=== PATIENT | male | born 1960 | race Caucasian/White ===

== ENCOUNTER 2017-01-20 05:39 | Outpatient (CLI) | payer BC, OTHER ==
[~2017-01-20] VITALS: Ht 175.3 cm; Wt 85.3 kg
[2017-01-20] MEDS ORDERED: LISI10TA2 PO (10:32)
[2017-01-20] MEDS ORDERED: ATOR10TA66 PO (10:32)
== END 2017-01-20 10:37 ==
LOC: PREOP 05:39
PROVIDERS: ATTEND Surgery
DX: Z01.818 Encounter for other preprocedural examination (principal); Z12.11 Encounter for screening for malignant neoplasm of colon

== ENCOUNTER 2017-01-27 07:43 | Day surgery (SDC) | payer BC, OTHER ==
[~2017-01-27] VITALS: Ht 175.3 cm; Wt 85.3 kg
[~2017-01-27 07:43] MED LIST: ATOR10TA66 PO; LISI10TA2 PO
[2017-01-27] MEDS ORDERED: LACTATED RINGERS 1,000 ML IV STA (07:51)
[2017-01-27 08:01] VITALS: BP 126/87
--- NOTE | 2017-01-27 08:16 | Progress Note-Pre Operative ---
Pre-Operative Progress Note H&P Reviewed The H&P was reviewed, patient examined and no changes noted. Date Seen by Provider: Jan 27, 2017 Time Seen by Provider: 08:16 Date H&P Reviewed: Jan 27, 2017 Time H&P Reviewed: 08:16 Pre-Operative Diagnosis: screening colonoscopy SUJIT ESQUIVEL DO Jan 27, 2017 08:16
[2017-01-27] MEDS ORDERED: MIDAZOLAM 2 MG/2 ML (VERSED) VIAL ONE (08:45)
[2017-01-27] MEDS ORDERED: proPOfol 200 MG/20 ML (DIPRIVAN) VIAL IV ONE ×2 (08:45→09:14)
--- NOTE | 2017-01-27 09:34 | Progress Note-Post Operative ---
Post-Operative Progess Note Surgeon (s)/Unloader (s) Surgeon SUJIT ESQUIVEL DO Unloader: na Pre-Operative Diagnosis screening colonoscopy Post-Operative Diagnosis diverticulosis, colon polyp x 2 descending colon Procedure & Operative Findings Date of Procedure 01/27/17 Procedure Performed/Findings colonoscopy with hot bx polypectomy x 2 Anesthesia Type per gas plumbing inspector Estimated Blood Loss Estimated blood loss (mL): none Specimens/Packing Specimens Removed colon polyp x 2 descending colon SUJIT ESQUIVEL DO Jan 27, 2017 09:34
--- NOTE | 2017-01-27 09:35 | Discharge Inst-Simple/Standard ---
Discharge Inst-Standard Patient Instructions/Follow Up Plan of Care/Instructions/FU: 2 weeks lucretia Activity as Tolerated: Yes Discharge Diet: Regular Diet (high fiber diet) SUJIT ESQUIVEL DO Jan 27, 2017 09:35
[2017-01-27 09:40] VITALS: BP 114/78
[2017-01-27 10:10] VITALS: BP 128/81
[2017-01-27 10:25] VITALS: BP 128/81
--- NOTE | 2017-01-27 19:21 | OPERATIVE REPORT ---
DATE OF SERVICE: 01/27/2017 PREOPERATIVE DIAGNOSIS: Screening colonoscopy. POSTOPERATIVE DIAGNOSES: Diverticulosis, descending colon polyps x2. PROCEDURE PERFORMED: Colonoscopy with hot biopsy, polypectomy x2, descending colon. SURGEON: SUJIT ESQUIVEL DO. ANESTHESIA: Per HARD ROCK DRILL OPERATOR. ESTIMATED BLOOD LOSS: None. COMPLICATIONS: None. INDICATIONS: The patient is a 56-year-old male in need of screening colonoscopy. He understands risks and benefits of procedure and wished to proceed with procedure. Consent was signed and on the chart. DESCRIPTION OF PROCEDURE: The patient was taken to the endoscopy suite, placed in left lateral recumbent position. Timeout was performed. Digital rectal exam was performed. There were no palpable polyps, masses or ulcerations. Scope was inserted in the rectum and advanced all the way to the cecum with minimal difficulty. Prep was adequate. Scope was then slowly retracted back. There were no polyps, masses or ulcerations in the cecum, ascending, or transverse colon. In the descending colon, there were 2 small polyps which hot biopsied, polypectomy was performed. The scope was continued, slowly retracted back into the sigmoid, which had no polyps, mass or ulcerations. Of note, the patient does have diverticulosis throughout the sigmoid, descending colon, ascending colon and cecum. Once in the rectum, scope was also retroflexed noting no other pathology. Scope was returned to its normal position, slowly withdrawn until completely removed. The patient tolerated procedure well without any complications and was taken to recovery room in stable condition. RECOMMENDATIONS: The patient will need repeat colonoscopy in 5 years. If he has any problems prior to that, he should be reevaluated at that time. The patient is with diverticulosis, we would recommend high fiber diet greater than 25 grams. The patient will follow up in 2 weeks to discuss pathology results and recommendations. Job ID: [id number] DocumentID: [id number] Dictated Date: 01/27/2017 09:38:17 Production Team Leader Date: 01/27/2017 19:20:41 Dictated By: SUJIT ESQUIVEL DO
== END 2017-01-27 10:25 | disposition home or self-care (01) ==
LOC: ENDO 07:43
PROVIDERS: ATTEND Surgery
DX: Z12.11 Encounter for screening for malignant neoplasm of colon (principal); D12.4 Benign neoplasm of descending colon; K63.5 Polyp of colon; K57.30 Diverticulosis of large intestine without perforation or abscess without bleeding; I10 Essential (primary) hypertension; F17.210 Nicotine dependence, cigarettes, uncomplicated; Z79.899 Other long term (current) drug therapy

== ENCOUNTER 2022-04-01 05:44 | Outpatient (CLI) | payer BC, OTHER ==
[~2022-04-01] VITALS: Ht 172.3 cm; Wt 87.1 kg
[~2022-04-01 05:44] MED LIST changes: -LISI10TA2 PO; +LISI10TA25 PO
== END 2022-04-03 10:15 | disposition home or self-care (01) ==
LOC: PREOP 05:44
PROVIDERS: ATTEND Surgery
DX: Z01.818 Encounter for other preprocedural examination (principal)

== ENCOUNTER 2022-04-08 09:21 | Day surgery (SDC) | payer BC, OTHER ==
[~2022-04-08] VITALS: Ht 175 cm; Wt 87.1 kg
[2022-04-08] MEDS ORDERED: LACTATED RINGERS 1,000 ML IV STA (09:24)
--- NOTE | 2022-04-08 09:29 | Progress Note-Pre Operative ---
Pre-Operative Progress Note Date of Available H&P: Mar 17, 2022 Date H&P Reviewed: Apr 08, 2022 Time H&P Reviewed: 09:28 History & Physical: H&P Reviewed, Patient Examed, No changes noted Pre-Operative Diagnosis: Hx of polyps SUJIT ESQUIVEL DO Apr 08, 2022 09:29
[2022-04-08 09:30] VITALS: BP 138/93
[2022-04-08] MEDS ORDERED: proPOfol 200 MG/20 ML (DIPRIVAN) VIAL IV ONE ×2 (10:39→10:45)
--- NOTE | 2022-04-08 11:03 | Discharge Inst-Simple/Standard ---
Discharge Inst-Standard Patient Instructions/Follow Up Plan of Care/Instructions/FU: Follow up in 5 years. Return sooner if any problems. Activity as Tolerated: Yes Discharge Diet: Regular Diet SUJIT ESQUIVEL DO Apr 08, 2022 11:03
[2022-04-08 11:08] VITALS: BP 137/89
[2022-04-08 11:15] VITALS: BP 135/93
[2022-04-08 11:49] VITALS: BP 135/93
--- NOTE | 2022-04-08 18:56 | OPERATIVE REPORT ---
DATE OF SERVICE: 04/08/2022 PREOPERATIVE DIAGNOSIS: History of polyps. POSTOPERATIVE DIAGNOSIS: Diverticulosis. PROCEDURE: Colonoscopy. SURGEON: Sujit Dodge DO. ANESTHESIA: Per MD. ESTIMATED BLOOD LOSS: None. COMPLICATIONS: None. INDICATIONS: The patient is a 61-year-old male with history of polyps, needing screening colonoscopy. He understands risks and benefits of the procedure and wished to proceed. Consent was signed in chart. DESCRIPTION OF PROCEDURE: The patient was taken to the endoscopy suite, placed in left lateral recumbent position. Timeout was performed. Digital rectal exam was performed. No palpable polyps, masses, ulcerations. Scope was inserted into the rectum and advanced all the way to cecum with minimal difficulty. Prep was adequate. The scope was retracted back. No polyps, masses, ulcerations in the cecum, ascending, transverse, descending and sigmoid colon. Pandiverticulosis throughout. Scope was retroflexed noting no other pathology except for some slight internal hemorrhoids. Scope was returned to its normal position and slowly withdrawn until completely removed. The patient tolerated the procedure well without any complications, taken to recovery room in stable condition. RECOMMENDATIONS: [ ] history of polyps, would recommend repeat colonoscopy in 5 years. Any issues before that be seen at that time. Job ID: [id number] DocumentID: [id number] Dictated Date: 04/08/2022 11:03:36 Commercial Green Building Architect Date: 04/08/2022 18:55:00 Dictated By: SUJIT DODGE DO
== END 2022-04-08 11:55 | disposition home or self-care (01) ==
LOC: ENDO 09:21
PROVIDERS: ATTEND Surgery
DX: Z12.11 Encounter for screening for malignant neoplasm of colon (principal); K57.30 Diverticulosis of large intestine without perforation or abscess without bleeding; K64.8 Other hemorrhoids; Z86.010 Personal history of colon polyps; Z87.891 Personal history of nicotine dependence